=== PATIENT | female | born 1980 | race Caucasian/White ===

== ENCOUNTER 2017-04-25 08:54 | Emergency (ER) | payer OTHER ==
[2017-04-25 09:38] VITALS: BP 120/69
--- NOTE | 2017-04-25 10:06 | UC ---
Eye Complaint HPI - HPI Summary HPI Summary: Pt c/o of sudden onset of bilateral eye redness and discharge X 2 days. pt c/o left eye redness worse than right. Pt reports waking up this morning with bilateral eyes "glued shut". Pt's daughter dx with conjunctivitis last week. - History of Current Complaint Chief Complaint: UCEye Stated Complaint: EYE COMPLAINT Time Seen by Provider: 04/25/17 10:01 Hx Obtained From: Patient Hx Last Menstrual Period: 04/04/17 ?: No Onset/Duration: Sudden Onset, Lasting Days, Still Present Timing: Constant Severity Currently: Mild Pain Intensity: 0 Associated Signs And Symptoms: Positive: Drainage (Purulent) - Risk Factors Acute Glaucoma Risk Factors: Negative Optic Artery Occlusion Risk Factors: Negative - Allergies/Home Medications Allergies/Adverse Reactions: Allergies Allergy/AdvReac Type Severity Reaction Status Date / Time No Known Allergies Allergy Verified 04/25/17 09:34 Home Medications: Home Medications Control 1 tab PO DAILY 04/25/17 [History Confirmed 04/25/17] PMH/Surg Hx/FS Hx/Imm Hx Previously Healthy: Yes - Surgical History Surgical History: Yes Surgery Procedure, Year, and Place: T &A. ear tubes - Family History Known Family History: Positive: Cardiac Disease - Social History Occupation: Employed Full-time Lives: With Family Alcohol Use: None Substance Use Type: None Smoking Status (MU): Never Smoked Tobacco Have You Smoked in the Last Year: No Review of Systems Constitutional: Negative Skin: Negative Eyes: Drainage, Eye Redness ENT: Negative Respiratory: Negative Cardiovascular: Negative Gastrointestinal: Negative Genitourinary: Negative Motor: Negative Neurovascular: Negative Musculoskeletal: Negative Neurological: Negative Psychological: Negative Is Patient Immunocompromised?: No All Other Systems Reviewed And Are Negative: Yes Physical Exam Triage Information Reviewed: Yes Appearance: Well-Appearing Vital Signs: Initial Vital Signs Temp 98.8 F 04/25/17 09:32 Pulse 77 04/25/17 09:32 Resp 16 04/25/17 09:32 BP 120/69 04/25/17 09:32 Pulse Ox 100 04/25/17 09:32 Vital Signs Reviewed: Yes Eye Exam: Other Eyes: Positive: Conjunctiva Inflamed, Discharge ENT Exam: Normal Dental Exam: Normal Neck exam: Normal Respiratory Exam: Normal Cardiovascular Exam: Normal Musculoskeletal Exam: Normal Neurological Exam: Normal Psychological Exam: Normal Skin Exam: Normal Eye Complaint Course/Dx - Differential Dx/Diagnosis Differential Diagnosis/HQI/PQRI: Conjunctivitis Provider Diagnoses: Conjunctivitis bilateral Discharge - Discharge Plan Condition: Stable Disposition: HOME Prescriptions: Polymyx/Trimethoprim OPTH* [Polytrim OPHTH*] 2 drop BOTH EYES Q8H #1 btl Patient Education Materials: Conjunctivitis (ED) Referrals: Mani Hernandez MD [Primary Care Provider] - If Needed Additional Instructions: Please follow up with your PCP or return to clinic as needed. Please follow up with an eye care provider if needed.
== END 2017-04-25 10:19 | disposition home or self-care (01) ==
LOC: UCCORT 08:54
DX: H10.9 Unspecified conjunctivitis (principal)
CPT/HCPCS: 99202; G0463

== ENCOUNTER 2018-04-29 16:56 | Emergency (ER) | payer MEDICAID, OTHER ==
[2018-04-29 17:31] VITALS: BP 117/83
--- NOTE | 2018-04-29 18:34 | UC ---
Respiratory Complaint HPI - HPI Summary HPI Summary: Pt c/o dry, broncho-spastic cough that bgan 1 day ago. Pt's daughter was diagnosed with the flu and pt was begun on tamiflu 2 days ago. Pt states that she has nasal congestion and dry cough that was worse yesterday. Pt has been using rescue inhaler with little improvement in cough. - History of Current Complaint Chief Complaint: UCRespiratory Stated Complaint: COUGH/CONGESTION Time Seen by Provider: 04/29/18 18:03 Hx Obtained From: Patient Hx Last Menstrual Period: 03/27/18 ?: No Onset/Duration: Sudden Onset, Lasting Days, Still Present Timing: Intermittent Episodes Severity Initially: Moderate Severity Currently: Mild Pain Intensity: 0 Character: Cough: Nonproductive Aggravating Factors: Allergens, Exertion, Deep Breaths, Recumbent Position Alleviating Factors: Nothing Associated Signs And Symptoms: Positive: URI, Nasal Congestion Related History: Seasonal Allergies - Risk Factors Pulmonary Embolism Risk Factors: Negative Cardiac Risk Factors: Negative Pseudomonas Risk Factors: Negative Tuberculosis Risk Factors: Negative - Allergies/Home Medications Allergies/Adverse Reactions: Allergies Allergy/AdvReac Type Severity Reaction Status Date / Time polymyxin B Allergy Rash Verified 04/29/18 17:27 Home Medications: Home Medications Cetirizine* [ZyrTEC 10 MG TAB*] 10 mg PO DAILY 04/29/18 [History Confirmed 04/29] Oseltamivir CAP* [Tamiflu CAP*] 75 mg PO BID 04/29/18 [History Confirmed ] PMH/Surg Hx/FS Hx/Imm Hx Previously Healthy: Yes - Surgical History Surgical History: Yes Surgery Procedure, Year, and Place: T &A. ear tubes x2 - Family History Known Family History: Positive: Cardiac Disease - Social History Occupation: Employed Full-time Lives: With Family Alcohol Use: None Substance Use Type: None Smoking Status (MU): Never Smoked Tobacco Have You Smoked in the Last Year: No Review of Systems All Other Systems Reviewed And Are Negative: Yes Constitutional: Positive: Fatigue Skin: Positive: Negative Eyes: Positive: Negative ENT: Positive: Sinus Congestion Respiratory: Positive: Cough Cardiovascular: Positive: Negative Gastrointestinal: Positive: Negative Genitourinary: Positive: Negative Motor: Positive: Negative Neurovascular: Positive: Negative Musculoskeletal: Positive: Myalgia Neurological: Positive: Negative Psychological: Positive: Negative Is Patient Immunocompromised?: No Physical Exam Triage Information Reviewed: Yes Appearance: Well-Appearing Vital Signs: Initial Vital Signs Temp 100 F 04/29/18 17:24 Pulse 90 04/29/18 17:24 Resp 18 04/29/18 17:24 BP 117/83 04/29/18 17:24 Pulse Ox 100 04/29/18 17:24 Vital Signs Reviewed: Yes Eye Exam: Normal ENT: Positive: Nasal congestion Dental Exam: Normal Neck exam: Normal Respiratory: Positive: Normal breath sounds Cardiovascular Exam: Normal Musculoskeletal Exam: Normal Neurological Exam: Normal Psychological Exam: Normal Skin Exam: Normal UC Diagnostic Evaluation - Laboratory O2 Sat by Pulse Oximetry: 100 Respiratory Course/Dx - Differential Dx/Diagnosis Differential Diagnosis/HQI/PQRI: Bronchitis, Influenza Provider Diagnosis: Cough in adult, Viral syndrome Discharge - Sign-Out/Discharge Documenting (check all that apply): Patient Departure All imaging exams completed and their final reports reviewed: No Studies - Discharge Plan Condition: Stable Disposition: HOME Prescriptions: Benzonatate CAP* [Tessalon 100 MG CAP*] 200 mg PO Q8H PRN #30 cap PRN Reason: Cough predniSONE TAB* [Deltasone 10 MG TAB*] 30 mg PO DAILY #12 tab Patient Education Materials: Acute Cough (ED) Referrals: Mani Hernandez MD [Primary Care Provider] - If Needed - Billing Disposition and Condition Condition: STABLE Disposition: Home
== END 2018-04-29 18:50 | disposition home or self-care (01) ==
LOC: UCCORT 16:56
DX: R05 Cough (principal); B34.9 Viral infection, unspecified; Z88.8 Allergy status to other drugs, medicaments and biological substances
CPT/HCPCS: 99212; G0463